=== PATIENT | female | born 1980 | race Caucasian/White ===

== ENCOUNTER 2017-05-11 09:04 | Emergency (ER) | payer OTHER ==
[2017-05-11 09:24] LABS: APPEARANCE CLEAR (CLEAR); BILIRUBIN NEGATIVE (NEGATIVE); COLOR YELLOW (YELLOW); GLUCOSE NEGATIVE (NEGATIVE); KETONE NEGATIVE (NEGATIVE); NITRITE NEGATIVE (NEGATIVE); PROTEIN NEGATIVE (NEGATIVE); UROBILINOGEN NORMAL (NORMAL)
[2017-05-11 09:33] LABS: UDS - AMPHET NEGATIVE QUAL (NEGATIVE); UDS - BARB POSITIVE QUAL (NEGATIVE); UDS - BENZO NEGATIVE QUAL (NEGATIVE); UDS - COCAINE NEGATIVE QUAL (NEGATIVE); UDS - OPIATE NEGATIVE QUAL (NEGATIVE); UDS - PCP NEGATIVE QUAL (NEGATIVE); UDS - THC POSITIVE QUAL (NEGATIVE)
[2017-05-11 09:36] LABS: BASOPHILS 0.6 % (0-2); EOSINOPHILS 2.7 % (0-7); HEMATOCRIT 38.3 % (36.0-48.0); HEMOGLOBIN 12.8 g/dL (12-16); IMMATURE GRANULOCYTES 0.4 % (0-5); LYMPHOCYTES 26.7 % (15-50); MCH 28.8 pg (26.0-34.0); MCHC 33.4 g/dL (31.0-37.0); MCV 86.3 fL (80.0-100.0); MEAN PLATELET VOLUME 10.2 fL (7.4-10.4); MONOCYTES 8.4 % (2-11); NEUTROPHILS 61.2 % (40-80); PLATELET COUNT 280 10x3/uL (130-400); RBC 4.44 10x6/uL (4.00-5.40); RDW 12.9 % (11.5-14.5); WBC 7.7 10x3/uL (4.8-10.8)
[2017-05-11 09:59] LABS: ALKALINE PHOSPHATASE 61 U/L (46-116); ALT (SGPT) 36 U/L (10-68); CALC OSMOLALITY 278 mosm/kg (275-300); CALCIUM 8.8 mg/dL (8.5-10.1); CARBON DIOXIDE 27.1 mmol/L (21.0-32.0); CHLORIDE - SERUM 105 mmol/L (98-107); CREATININE - SERUM 0.8 mg/dL (0.6-1.3); GLUCOSE 112 mg/dL (74-106); SODIUM 140 mmol/L (136-145); UREA NITROGEN 10 mg/dL (7-18); eGFR NON AFRICAN AMERICAN 85 mL/min (90-120)
== END 2017-05-11 11:42 | disposition home or self-care (01) ==
LOC: D.ER 09:04
PROVIDERS: Emergency Medicine
DX: R45.851 Suicidal ideations (principal); F32.9 Major depressive disorder, single episode, unspecified; F12.90 Cannabis use, unspecified, uncomplicated